=== PATIENT | male | born 1960 | race Caucasian/White ===

== ENCOUNTER 2022-01-04 08:30 | Observation (INO) ==
[~2022-01-04 08:30] MED LIST: Buffered Lidocaine 1% SYRIN 1 ml INTRADERM ONE; Lactated Ringers 1000 ml BAG 1,000 ML IV SCH
[2022-01-04] MEDS ORDERED: ceFAZolin 2 GM in NS PREMIX 2 GM/100 ML BAG IVPB ONE (08:44)
[2022-01-04] MEDS ORDERED: Phenylephrine IV 10 MG/ML 1 ml VIAL ONE (10:53)
[2022-01-04] MEDS ORDERED: Midazolam 2 mg/2 ml VIAL 1 mg/ml 2 ml VIAL (2 mg) ONE (10:55)
[2022-01-04] MEDS ORDERED: fentaNYL 250 mcg/5 ml 50 MCG/ML 5 ml VIAL (250 MCG) ONE (10:55)
[2022-01-04] MEDS ORDERED: EPHEDrine (Pressors) 50 MG/ML VIAL ONE (11:37)
[2022-01-04] MEDS ORDERED: Magnesium Hydroxide LIQ 30 ML UDC PO PRN (11:39)
[2022-01-04] MEDS ORDERED: Ondansetron 4 mg VIAL 2 MG/ML 2 ml VIAL IV PRN ×2 (11:39→12:44)
[2022-01-04] MEDS ORDERED: Lactulose 30 ml UDC PO PRN (11:39)
[2022-01-04] MEDS ORDERED: Ondansetron ODT 4 mg TAB 4 MG TAB PO PRN (11:39)
[2022-01-04] MEDS ORDERED: ceFAZolin VIAL VIAL ONE ×2 (11:53→11:54)
[2022-01-04] MEDS ORDERED: Glycopyrrolate IV 0.2 MG/ML 1 ML VIAL ONE (12:07)
[2022-01-04] MEDS ORDERED: Propofol 10 MG/ML 20 ML BTL ONE (12:28)
[2022-01-04] MEDS ORDERED: Dexamethasone IV 4 MG/ML VIAL 1 ml VIAL ONE (12:34)
[2022-01-04] MEDS ORDERED: Ondansetron 4 mg VIAL 2 MG/ML 2 ml VIAL ONE (12:34)
[2022-01-04] MEDS ORDERED: Naloxone 0.4 mg VIAL 0.4 mg/ml 1 ml VIAL IV PRN (12:44)
[2022-01-04] MEDS ORDERED: ROPIVACAINE 5 MG/ML 30 ML BTL (0.5%) ONE (13:55)
[2022-01-04] MEDS ORDERED: Labetalol IV 5 MG/ML 20 ml VIAL IV PUSH ONE (14:52)
[2022-01-04] MEDS ORDERED: Labetalol IV 5 MG/ML 20 ml VIAL ONE (14:54)
[2022-01-04] MEDS ORDERED: HYDROmorphone 1 MG/1 ML SYRINGE ONE (14:59)
[2022-01-04] MEDS: HYDROmorphone 1 MG/1 ML SYRINGE IV PRN ×2 (15:00→15:10)
[2022-01-04] MEDS ORDERED: fentaNYL 100 mcg/2 ml 50 MCG/ML VIAL ONE (15:20)
[2022-01-04] MEDS: fentaNYL 100 mcg/2 ml 50 MCG/ML VIAL IV PRN ×2 (15:25→15:30)
[2022-01-04] MEDS: Lactated Ringers 1000 ml BAG 1,000 ML IV SCH (17:24)
[2022-01-04] MEDS: Clindamycin 600 MG/D5W BAG 600 MG/50 ML BAG IV SCH (20:44)
[2022-01-04] MEDS: Magnesium Hydroxide LIQ 30 ML UDC PO SCH (21:27)
[2022-01-04] MEDS: Morphine 2 MG/ML SYRINGE IV PRN (21:28)
[2022-01-05] MEDS: Lactated Ringers 1000 ml BAG 1,000 ML IV SCH (03:15)
[2022-01-05] MEDS: Clindamycin 600 MG/D5W BAG 600 MG/50 ML BAG IV SCH ×2 (04:24→11:36)
[2022-01-05 05:01] LABS: Hematocrit 28 % (42-52); Hemoglobin 9.4 g/dL (14.0-18.0); Mean Platelet Volume 7.6 fL (7.4-10.4); Platelet Count 204 10^3/uL (150-450)
[2022-01-05] MEDS: Morphine 2 MG/ML SYRINGE IV PRN (05:06)
[2022-01-05 05:22] LABS: Calcium 8.3 mg/dL (8.6-10.3); eGFR CKD-EPI 102.1 (>60)
[2022-01-05] MEDS ORDERED: Vitamin THERAPEUTIC TAB PO SCH (09:00)
[2022-01-05] MEDS ORDERED: Aspirin EC 81 mg TAB.EC (enteric coated) PO SCH (09:00)
[2022-01-05] MEDS: Magnesium Hydroxide LIQ 30 ML UDC PO SCH (09:07)
[2022-01-05 11:15] VITALS: BP 124/65
== END 2022-01-05 13:45 | disposition home or self-care (01) ==
LOC: SSU 08:30 → OR 08:30 → EDSTATUS 09:15
PROVIDERS: ADMIT Orthopaedic Surgery Adult Reconstructive Orthopaedic Surgery; ATTEND Orthopaedic Surgery Adult Reconstructive Orthopaedic Surgery

== ENCOUNTER 2023-05-24 14:35 | Observation (INO) ==
[2023-05-24 15:04] LABS: ABS Eosinophils 0.1 10^3/uL (0.0-0.5); ABS Lymphocytes 2.7 10^3/uL (1.0-4.8); ABS Monocytes 0.8 10^3/uL (0.0-1.1); ABS Neutrophils 4.7 10^3/uL (1.5-7.6); Eosinophil % 1.6 %; Hematocrit 36.4 % (38-53); Hemoglobin 12.6 g/dL (13.2-16.3); Lymphocyte % 32.5 %; Mean Corpuscular Hemoglobin 29.8 pg (27-33); Mean Corpuscular Hgb Conc 34.7 g/dL (31-36); Mean Platelet Volume 6.9 fL (7.5-11.2); Platelet Count 325 10^3/uL (150-450); Red Blood Count 4.23 10^6/uL (4.06-5.63); Red Cell Distribution Width 15.7 % (12-17); White Blood Count 8.4 10^3/uL (3.6-10.2)
[2023-05-24 15:09] LABS: INR 1.05 (0.83-1.13)
[2023-05-24 15:12] LABS: Albumin 4.6 g/dL (3.2-5.2); Calcium 9.4 mg/dL (8.6-10.3); Potassium 3.8 mmol/L (3.5-5.0); Total Bilirubin 0.4 mg/dL (0.2-1.0)
[2023-05-24 15:18] LABS: Albumin/Globulin Ratio 1.5 (1-3); Creatinine, Serum 0.81 mg/dL (0.67-1.17); Globulin 3.1 g/dL (2-4); Total Protein 7.7 g/dL (6.4-8.9); eGFR CKD-EPI 99.7 (>60)
[2023-05-24 17:35] LABS: TSH Ultra Thyroid Stim Horm 0.75 mcIU/mL (0.34-5.60)
[2023-05-24] MEDS ORDERED: Nitro 2% OINT (Nitroglycerin) 1 INCH/PAK TOPICAL ONE (20:38)
[2023-05-24] MEDS ORDERED: Nitroglycerin 0.6 mg TAB SL PRN (21:59)
[2023-05-24] MEDS ORDERED: Furosemide 20 mg/2 ml IV VIAL IV ONE (22:56)
[2023-05-24 23:16] LABS: Ferritin 15.3 ng/mL (24-336)
[2023-05-24] MEDS: Enoxaparin 40 MG/0.4 ML SYR SUBCUT SCH (23:18)
[2023-05-25] MEDS ORDERED: Potassium Chlor 20 meq TAB.ER PO ONE (00:07)
[2023-05-25] MEDS ORDERED: Ferric Gluconate IV 250 MG in NS 0.9% 250 ml 200 ML IVPB ONE (00:11)
[2023-05-25] MEDS: Aspirin EC 81 mg TAB.EC (enteric coated) PO SCH (08:16)
[2023-05-25] MEDS ORDERED: OLMESARTAN AMLODIPIN HCTHIAZID PO SCH (09:00)
[2023-05-25] MEDS ORDERED: Furosemide 20 mg/2 ml IV VIAL IV SLOW PU ONE (11:58)
[2023-05-25] MEDS ORDERED: Polyethylene Glycol 3350 17 GM PACKET PO PRN (18:39)
[2023-05-25] MEDS ORDERED: Magnesium Hydroxide LIQ 30 ML UDC PO PRN (18:39)
[2023-05-25 21:03] LABS: ABS Basophils 0.1 10^3/uL (0.0-0.1); ABS Eosinophils 0.2 10^3/uL (0.0-0.5); ABS Lymphocytes 2.6 10^3/uL (1.0-4.8); ABS Monocytes 1.1 10^3/uL (0.0-1.1); ABS Neutrophils 4.8 10^3/uL (1.5-7.6); ABS Nucleated RBC 0.01 10^3/ul; Eosinophil % 2.1 %; Hematocrit 38.1 % (38-53); Hemoglobin 13.1 g/dL (13.2-16.3); Lymphocyte % 29.9 %; Mean Corpuscular Hemoglobin 29.4 pg (27-33); Mean Corpuscular Hgb Conc 34.3 g/dL (31-36); Mean Corpuscular Volume 85.9 fL (80-97); Mean Platelet Volume 6.8 fL (7.5-11.2); Nucleated Red Blood Cells % 0.1 /100 WBC (0.0-0.4); Platelet Count 332 10^3/uL (150-450); Red Blood Count 4.43 10^6/uL (4.06-5.63); Red Cell Distribution Width 15.5 % (12-17); White Blood Count 8.8 10^3/uL (3.6-10.2)
[2023-05-25 21:15] LABS: Calcium 9.7 mg/dL (8.6-10.3); Potassium 3.6 mmol/L (3.5-5.0)
[2023-05-25 21:21] LABS: Creatinine, Serum 0.93 mg/dL (0.67-1.17); eGFR CKD-EPI 92.8 (>60)
[2023-05-25] MEDS: Enoxaparin 40 MG/0.4 ML SYR SUBCUT SCH (21:55)
[2023-05-26 06:25] LABS: ABS Eosinophils 0.2 10^3/uL (0.0-0.5); ABS Lymphocytes 2.4 10^3/uL (1.0-4.8); ABS Monocytes 0.9 10^3/uL (0.0-1.1); ABS Neutrophils 4.6 10^3/uL (1.5-7.6); ABS Nucleated RBC 0.01 10^3/ul; Eosinophil % 2.9 %; Hematocrit 35.8 % (38-53); Hemoglobin 12.6 g/dL (13.2-16.3); Lymphocyte % 29.1 %; Mean Corpuscular Hemoglobin 30.1 pg (27-33); Mean Corpuscular Hgb Conc 35.3 g/dL (31-36); Mean Corpuscular Volume 85.4 fL (80-97); Mean Platelet Volume 6.6 fL (7.5-11.2); Nucleated Red Blood Cells % 0.1 /100 WBC (0.0-0.4); Platelet Count 299 10^3/uL (150-450); Red Blood Count 4.19 10^6/uL (4.06-5.63); Red Cell Distribution Width 15.9 % (12-17); White Blood Count 8.1 10^3/uL (3.6-10.2)
[2023-05-26 06:44] LABS: Calcium 9.3 mg/dL (8.6-10.3); Creatinine, Serum 0.85 mg/dL (0.67-1.17); Potassium 3.5 mmol/L (3.5-5.0); eGFR CKD-EPI 98.2 (>60)
[2023-05-26] MEDS ORDERED: Miconazole 2% Top Powder BTL TOPICAL SCH (09:00)
[2023-05-26] MEDS ORDERED: Influenza vaccine *QUAD* *2023-24* 0.5 ML SYRINGE IM ONE (09:00)
[2023-05-26] MEDS: Aspirin EC 81 mg TAB.EC (enteric coated) PO SCH (09:45)
[2023-05-26 11:08] VITALS: BP 147/78
== END 2023-05-26 11:40 | disposition home or self-care (01) ==
LOC: EDHOLD 14:35 → ED 14:35 → SUATTDRO 21:56 → EDHOLD 05-25 11:39 → MEDTELE 05-26 00:43
PROVIDERS: ADMIT Student in an Organized Health Care Education/Training Program; ATTEND Internal Medicine